=== PATIENT | male | born 1960 | race African-American/Black ===

== ENCOUNTER → 2020-04-18 | Outpatient (CLI) | payer BC ==
--- NOTE | 2020-04-18 17:01 | RAD ---
Cervical spine radiograph 04/18/2020 12:00 AM INDICATION: Atraumatic neck pain for 2 months, right greater than left COMPARISON: None available. TECHNIQUE: Lateral, AP and odontoid views of the cervical spine are provided. FINDINGS: The cervical spine is visualized from the craniocervical junction through the cervicothoracic junction. There is minimal retrolisthesis of C3 on C4 and C4 on C5. There is moderate disc height loss at C4-C5, C5-C6 and C6-C7. Mild disc height loss at C3-C4. Vertebral body heights are maintained. No acute fracture is identified. Atlantoaxial articulation is intact. Craniocervical junction appears normal. No prevertebral edema. Moderate intramarginal osteophytosis. No significant osseous neural foraminal stenosis. No significant osseous spinal canal stenosis. There is mild to moderate uncovertebral joint disease most prominent at C3-C4, C4-C5 and C5-C6. IMPRESSION: No acute fracture of the cervical spine. There is mild to moderate cervical spondylosis with minimal retrolisthesis of C3 on C4 and C4 on C5. Electronically signed by: Kimberley Rosales MD (04/18/2020 4:58 PM) [id number]
== END | disposition home or self-care (01) ==
LOC: RAD 16:12
PROVIDERS: ATTEND Family Medicine
DX: M47.892 Other spondylosis, cervical region (principal); M48.9 Spondylopathy, unspecified; M25.78 Osteophyte, vertebrae
CPT/HCPCS: 72050

== ENCOUNTER → 2021-02-28 | Day surgery (SDC) | payer BC ==
[~2021-02-28] MED LIST: AMLO-186 PO; ATOR80TA72 PO; LIDOCAINE 1%/EPI 1:100,000 20 ML VIAL. INJ ONE
[2021-02-28 08:52] VITALS: BP 132/89
--- NOTE | 2021-02-28 09:56 | PDOC4 ---
Operative Note Operative Note Operative Note: Preoperative Diagnosis: Back cyst Postoperative Diagnosis: Same Procedure: Excision of back cyst, 3 X 1.5 cm Surgeon: Edwin Anesthesia: Local EBL: 5 mL Specimen: Back cyst to pathology Drains: None Complications: None Indication: The patient is a 61-year-old male who has a symptomatic and slowly enlarging cyst of his back. He requests excision. The risks of surgery were discussed which include bleeding, infection, scar tissue, pain, recurrence, potential need for additional surgery procedure. He understands and would like to proceed. Description: The patient was laid prone on the procedure table. The the involved skin located in the upper left back was prepped with ChloraPrep and draped in a standard surgical manner. The skin was infiltrated with 1% lidocaine with epinephrine. An elliptical incision was made around the borders of the cyst with a scalpel. Sharp dissection was used for full excision of the cyst and its sac. The mass extended into the deeper subcutaneous tissues. The excised specimen measured 3 x 1.5 cm and was sent to pathology. Several small bleeding points were controlled with cautery. Hemostasis was good. The subcutaneous tissues were approximated with 3-0 Vicryl. The skin was closed with 4-0 Monocryl. Steri-Strips and a sterile dressing were applied. The patient tolerated the procedure well and was discharged. DAMIR STAFFORD MD Feb 28, 2021 09:56
--- NOTE | 2021-03-03 18:10 | PATHOLOGY ---
[facility] Accession Number: [id number] . 01 Material submitted: . back - BACK MASS . 01 Clinical history: . BACK MASS/CYST . 02 Diagnosis: Skin, back mass, excision: - Epidermal inclusion cyst. . ([facility]; 03/03/2021) [facility] 03/03/2021 1621 Local . 02 Comment: There is no evidence of malignancy. . ([facility]:mm; 03/03/2021) . 02 Electronically signed: . Alan Grfa MD, Pathologist NPI- [id number] . 01 Gross description: . The specimen is received in formalin, labeled "Abrahan Monge, back mass". Received is an ellipse of roberto-brown, grossly unremarkable skin measuring 2.4 x 1.2 x 1.3 cm in greatest dimensions. The surgical margin is inked. Sectioning reveals a unilocular cystic structure measuring 0.9 cm filled with roberto-brown friable material. The specimen is submitted representatively in cassette A1. ([facility]; 03/02/2021) [facility] 03/02/2021 1452 Local . 02 Pathologist provided ICD-10: L72.0 . 02 CPT . 550981 Specimen Comment: A courtesy copy of this report has been sent to [phone], [phone] Specimen Comment: [id number] Specimen Comment: Report sent to / DR ABRAHAM Performed at: 01 [facility] [address], [place] [id number] MD Bennett Agrawal MD Phone: [phone] Performed at: 02 [facility] [address] [place], [place] [id number] MD Alan Graf MD Phone: [phone]
== END | disposition home or self-care (01) ==
LOC: SURG 08:22
PROVIDERS: ATTEND Surgery
DX: L72.0 Epidermal cyst (principal); I10 Essential (primary) hypertension; E78.00 Pure hypercholesterolemia, unspecified; M19.90 Unspecified osteoarthritis, unspecified site; Z79.899 Other long term (current) drug therapy; Z98.890 Other specified postprocedural states; Z72.89 Other problems related to lifestyle; Z20.822 Contact with and (suspected) exposure to COVID-19
CPT/HCPCS: 11403; 87426; 88304; J3490; 11406

== ENCOUNTER 2021-05-30 11:09 | Emergency (ER) | payer BC ==
[~2021-05-30] VITALS: Ht 190.5 cm; Wt 96.3 kg
[~2021-05-30 11:09] MED LIST changes: -LIDOCAINE 1%/EPI 1:100,000 20 ML VIAL. INJ ONE
[2021-05-30 12:57] LABS: BASO % 0 % (0-3); EOS % 0 % (0-3); HEMATOCRIT 37.1 % (39.0-53.0); HEMOGLOBIN 12.6 g/dL (13.0-17.5); LYMPH # 1.1 x10^3/uL (1.0-4.8); LYMPH % 18 % (24-48); MEAN CORPUSCULAR HEMOGLOBIN 31 pg (25-35); MEAN CORPUSCULAR HGB CONC 34 g/dL (31-37); MEAN CORPUSCULAR VOLUME 90 fL (79-100); MONO # 0.6 x10^3/uL (0.0-1.1); MONO % 10 % (0-9); NEUT # 4.3 x10^3/uL (1.8-7.7); NEUT % 72 % (31-73); PLATELET COUNT 152 x10^3/uL (140-400); RED BLOOD COUNT 4.12 x10^6/uL (4.30-5.70); RED CELL DISTRIBUTION WIDTH 14.5 % (11.5-14.5); WHITE BLOOD COUNT 6.1 x10^3/uL (4.0-11.0)
[2021-05-30 13:09] LABS: CALCIUM 9.5 mg/dL (8.5-10.1); CREATININE 1.3 mg/dL (0.7-1.3); GFR 68.1
[2021-05-30 13:15] LABS: ALBUMIN 4.2 g/dL (3.4-5.0); ALBUMIN/GLOBULIN RATIO 1.1 (1.0-1.7); TOTAL BILIRUBIN 0.6 mg/dL (0.2-1.0); TOTAL PROTEIN 8.1 g/dL (6.4-8.2)
[2021-05-30] MEDS ORDERED: IOHEXOL 240 MG/ML 50ML VIAL. PO ONE (14:00)
[2021-05-30] MEDS ORDERED: IOHEXOL 300 MG/ML 100ML VIAL. IV ONE (14:00)
[2021-05-30] MEDS ORDERED: IV NORMAL SALINE 1000ML BAG 1,000 ML IV ONE (14:15)
--- NOTE | 2021-05-30 14:27 | RAD ---
EXAM: Abdomen and pelvis CT with intravenous contrast. HISTORY: Pain and rectal bleeding. TECHNIQUE: Computed tomographic images of the abdomen and pelvis were obtained following the administ ration of intravenous contrast. Multiplanar reformatting was performed. *One or more of the following individualized dose reduction techniques were utilized for this examina tion: 1. Automated exposure control. 2. Adjustment of the mA and/or kV according to patient size. 3. Use of iterative reconstruction technique. COMPARISON: None. FINDINGS: Evaluation of the lower thorax demonstrates no infiltrate or pleural effusion. The heart is normal in size. There is hepatic steatosis. No focal hepatic lesion is seen. The gallbladder, pancre as, spleen and adrenal glands are unremarkable. There are small simple appearing renal cortical cysts , some which are too small to characterize. Follow-up is not routinely performed for simple cysts. There is no evidence of bowel obstruction or abnormal bowel wall thickening. There is stool within th e rectal vault. There is aortic and aortic branch vessel atherosclerosis. There is no aneurysm. There is a tiny fat-containing superior umbilical hernia. There is asymmetric fat within the right inguina l canal. There is no lymphadenopathy. There are degenerative changes throughout the spine. There is a transitional lumbosacral segment, a normal variant. IMPRESSION: 1. No convincing acute abdominal or pelvic finding. 2. Hepatic steatosis. 3. Small simple appearing renal cysts. Electronically signed by: Shannan Arceo MD (05/30/2021 2:25 PM) [id number]
[2021-05-30] MEDS ORDERED: TRAM50TA PO (15:31)
--- NOTE | 2021-05-30 15:33 | ED.ADGEN ---
Past Medical History Past Surgical History: No Surgical History General Adult EDM: Chief Complaint: GI PROBLEM HPI: HPI: Patient is a 61-year-old male who presents to the emergency room complaining of dark stools for the last 2 to 3 weeks. Patient states he is having multiple episodes of loose stools. He intermittently gets some abdominal pain but states that it feels more like he is hungry. He denies any nausea or vomiting. He has not had any bright red blood. He went and saw his primary today who recommended that he come to the emergency room for evaluation. He states that he did have a syncopal episode when he stood up from bed last night. He states that he has felt fine since that time. He denies any kind of chest pain, headache, numbness, weakness. Review of Systems: Review of Systems: Complete ROS is negative unless otherwise documented in HPI Current Medications: Current Medications Medications (Trade) Dose Ordered Sig/Philippe Start Time Stop Time Status Last Admin Dose Admin Iohexol (Omnipaque 240 Mg/ml) 50 ml 1X ONCE 05/30/21 14:00 05/30/21 14:01 DC 05/30/21 14:15 50 ML Iohexol (Omnipaque 300 Mg/ml) 75 ml 1X ONCE 05/30/21 14:00 05/30/21 14:01 DC 05/30/21 14:15 75 ML Sodium Chloride 1,000 ml @ 1,000 mls/hr 1X ONCE 05/30/21 14:15 05/30/21 15:14 DC 05/30/21 14:50 1,000 MLS/HR Allergies: Allergies: Allergies Coded Allergies Type Severity Reaction Last Updated Verified No Known Drug Allergies 02/28/21 No Physical Exam: PE: General: Awake, alert, NAD. Well Nourished, well hydrated. Cooperative HEENT: Atraumatic, EOMI, PERRL, airway patent, moist oral mucosa Neck: Supple, trachea midline Respiratory: CTA bilaterally, normal effort, no wheezing/crackles CV: RRR, no murmur, cap refill <2 GI: Soft, nondistended, nontender, no masses MSK: No obvious deformities Skin: Warm, dry, intact Neuro: A&O x3, speech NL, sensory and motor grossly intact, no focal deficits Psych: Normal affect, normal mood, not suicidal or homicidal Current Patient Data: Labs: Laboratory Tests Test 05/30/21 12:40 White Blood Count 6.1 x10^3/uL (4.0-11.0) Red Blood Count 4.12 x10^6/uL (4.30-5.70) L Hemoglobin 12.6 g/dL (13.0-17.5) L Hematocrit 37.1 % (39.0-53.0) L Mean Corpuscular Volume 90 fL (79-100) Mean Corpuscular Hemoglobin 31 pg (25-35) Mean Corpuscular Hemoglobin Concent 34 g/dL (31-37) Red Cell Distribution Width 14.5 % (11.5-14.5) Platelet Count 152 x10^3/uL (140-400) Neutrophils (%) (Auto) 72 % (31-73) Lymphocytes (%) (Auto) 18 % (24-48) L Monocytes (%) (Auto) 10 % (0-9) H Eosinophils (%) (Auto) 0 % (0-3) Basophils (%) (Auto) 0 % (0-3) Neutrophils # (Auto) 4.3 x10^3/uL (1.8-7.7) Lymphocytes # (Auto) 1.1 x10^3/uL (1.0-4.8) Monocytes # (Auto) 0.6 x10^3/uL (0.0-1.1) Eosinophils # (Auto) 0.0 x10^3/uL (0.0-0.7) Basophils # (Auto) 0.0 x10^3/uL (0.0-0.2) Sodium Level 136 mmol/L (136-145) Potassium Level 4.0 mmol/L (3.5-5.1) Chloride Level 98 mmol/L (98-107) Carbon Dioxide Level 26 mmol/L (21-32) Anion Gap 12 (6-14) Blood Urea Nitrogen 26 mg/dL (8-26) Creatinine 1.3 mg/dL (0.7-1.3) Estimated GFR (Cockcroft-Gault) 68.1 BUN/Creatinine Ratio 20 (6-20) Glucose Level 106 mg/dL (70-99) H Lactic Acid Level 0.9 mmol/L (0.4-2.0) Calcium Level 9.5 mg/dL (8.5-10.1) Total Bilirubin 0.6 mg/dL (0.2-1.0) Aspartate Amino Transferase (AST) 113 U/L (15-37) H Alanine Aminotransferase (ALT) 89 U/L (16-63) H Alkaline Phosphatase 73 U/L (46-116) Troponin I Quantitative < 0.017 ng/mL (0.000-0.055) Total Protein 8.1 g/dL (6.4-8.2) Albumin 4.2 g/dL (3.4-5.0) Albumin/Globulin Ratio 1.1 (1.0-1.7) Laboratory Tests 05/30/21 12:40 Laboratory Tests 05/30/21 12:40 Vital Signs: Vital Signs Date Time Temp Pulse Resp B/P (MAP) Pulse Ox O2 Delivery O2 Flow Rate FiO2 05/30/21 16:00 73 136/86 (103) 98 Room Air 05/30/21 11:50 99.4 18 99.4 EKG: EKG: [] Heart Score: C/O Chest Pain: N/A Risk Factors: Risk Factors: DM, Current or recent (<one month) smoker, HTN, HLP, family history of CAD, obesity. Risk Scores: Score 0 - 3: 2.5% MACE over next 6 weeks - Discharge Home Score 4 - 6: 20.3% MACE over next 6 weeks - Admit for Clinical Observation Score 7 - 10: 72.7% MACE over next 6 weeks - Early Invasive Strategies Radiology/Procedures: Radiology/Procedures: [] Course & Med Decision Making: Course & Med Decision Making Pertinent Labs and Imaging studies reviewed. (See chart for details) Patient is a 61-year-old male with a history of hypertension who presents to the emergency room complaining of melena. Patient's presentation is concerning for GI bleed. Upon arrival to the emergency room patient's vitals are stable and massive transfusion was not set off as patient is stable. Type and screen, CBC, CMP, lactate, CT abdomen and pelvis were ordered to evaluate for GI bleed. Patient was started on fluids. Initial hemoglobin was 12.4. CT does not show any signs of diverticulosis or colitis which would explain patient's bleeding. Patient does drink and his liver enzymes are mildly elevated. I discussed with the patient that he needs to decrease his drinking and that this could be related to his bleeding. I discussed with the patient that I recommend he be admitted to the hospital for further evaluation by GI. Patient states that he would really like to go home and follow-up outpatient. At this time patient is stable with a normal hemoglobin. I will give him the information to follow-up with GI. I have discussed with him that he should call his physician as soon as he leaves here to discuss his results with them as well. Patient's test results and vitals while in the ED were fully reviewed and discussed with the patient. Patient is stable and at this time does not need admission to the hospital. We have discussed strict return precautions and the importance of following up with their Primary Care Physician. Patient stated understanding and was given an opportunity to ask any questions. Patient is in agreement with plan. Dragon Disclaimer: Tao Disclaimer: This electronic medical record was generated, in whole or in part, using a voice recognition dictation system. Departure Departure Impression: Primary Impression: GI bleed Additional Impressions: Syncope Hepatitis Disposition: HOME / SELF CARE / HOMELESS Condition: STABLE Referrals: Janine ABRAHAM MD (PCP) Patient Instructions: Rectal Bleeding Additional Instructions: You were seen here in the emergency room today for dark stools concerning for blood. At this time you do have normal blood levels. You were offered admission today, but declined. We recommend the followin. Please call your primary care physician today to let them know of your results as they sent you here for evaluation. 2. Please call the GI clinic to set up further evaluation for your dark stools. 3. Decrease the amount of alcohol you are currently drinking 4. Do not take any aspirin, Aleve, ibuprofen 5. If your bleeding continues or gets worse, you have another episode of passing out, you develop shortness of breath or severe weakness, you develop dizziness, you have bright red bleeding with your stools, you have blood in your vomit, or you have any other concerns please return to the emergency room. Scripts Tramadol Hcl (TRAMADOL HCL) 50 Mg Tablet 50 MG PO Q6HRS PRN for PAIN, #10 TAB Prov: EDDY CANCHOLA MD 05/30/21 Problem Qualifiers EDDY CANCHOLA MD May 30, 2021 15:33
[2021-05-30 16:00] VITALS: BP 136/86
== END 2021-05-30 16:05 | disposition home or self-care (01) ==
LOC: ER 11:09
DX: K92.2 Gastrointestinal hemorrhage, unspecified (principal); K75.9 Inflammatory liver disease, unspecified; R55 Syncope and collapse
CPT/HCPCS: 36415; 74177; 80053; 83605; 84484; 85025; 93005; 96360; 99285; J7030; Q9966; Q9967

== ENCOUNTER → 2021-06-02 | Outpatient (CLI) | payer BC ==
[2021-05-30 16:00] VITALS: BP 136/86
[~2021-06-02] MED LIST changes: +TRAM50TA PO
--- NOTE | 2021-06-02 10:21 | KCIC ---
Exam Date: 06/02/2021 8:23 AM XR SHOULDER_RIGHT 2+ VIEWS Indication: Reason: PAIN IN RIGHT SHOULDER, LROM XS 2 WEEKS, REPETITVE MOTIONS AT WORK / Spl. Instruc tions: / History: . FINDINGS/ IMPRESSION: No acute fracture or dislocation. Mild degenerative changes are noted. Alignment is maintained. Th e soft tissues are within normal limits. Electronically signed by: Ke Ledbetter MD (06/02/2021 10:19 AM) [id number]
== END ==
LOC: KCIC 08:19
PROVIDERS: ATTEND Family Medicine
DX: M19.011 Primary osteoarthritis, right shoulder (principal)
CPT/HCPCS: 73030

== ENCOUNTER → 2021-06-12 | Outpatient (CLI) | payer BC ==
[2021-05-30 16:00] VITALS: BP 136/86
--- NOTE | 2021-06-12 11:21 | KCIC ---
EXAM: MRI RIGHT SHOULDER WITHOUT CONTRAST INDICATION: Right shoulder pain, trauma to right shoulder 2 weeks ago. Pain and limited range of mer on COMPARISON: Right shoulder radiograph 06/02/2021 TECHNIQUE: Multiplanar, multisequence imaging of the right shoulder without contrast. FINDINGS: ROTATOR CUFF: There are full-thickness complete tears of the supraspinatus and infraspinatus tendons. Supraspinatus and infraspinatus tendon stumps are retracted to the medial aspect of the humeral head . Infraspinatus and subscapularis tendons are intact. Mild infraspinatus edema. No muscular atrophy. LABRUM: There is superior labral fraying. BICEPS TENDON: Intact and located.. ACROMIOCLAVICULAR JOINT: Mild degenerative joint disease. GLENOHUMERAL JOINT: There is probable superficial partial-thickness cartilage loss along the humeral head. There is mild elevation and posterior decentering of the humeral head relative to the glenoid. Marrow signal is normal. No acute fracture. OTHER: There is a joint effusion communicating with the subacromial-subdeltoid bursa. IMPRESSION: Complete full-thickness tears of the supraspinatus and infraspinatus tendons with retract ion to the medial humeral head. Mild edema in the infraspinatus muscle. No muscular atrophy. Electronically signed by: Jessica Hicks MD (06/12/2021 11:18 AM) [id number]
== END ==
LOC: KCIC MRI 08:06
PROVIDERS: ATTEND Family Medicine
DX: S49.91XA Unspecified injury of right shoulder and upper arm, initial encounter (principal); M19.011 Primary osteoarthritis, right shoulder; M75.121 Complete rotator cuff tear or rupture of right shoulder, not specified as traumatic; M25.411 Effusion, right shoulder; R60.9 Edema, unspecified; X58.XXXA Exposure to other specified factors, initial encounter; Y93.89 Activity, other specified; Y92.89 Other specified places as the place of occurrence of the external cause; Y99.8 Other external cause status
CPT/HCPCS: 73221